=== PATIENT | female | born 1970 | race Caucasian/White ===

== ENCOUNTER 2018-03-25 08:00 | Outpatient (CLI) | payer BC ==
[2015-05-30 06:23] VITALS: BMI 27.5
== END 2018-03-25 09:00 | disposition home or self-care (01) ==
LOC: D.MAMMO 08:00
DX: Z12.31 Encounter for screening mammogram for malignant neoplasm of breast (principal)

== ENCOUNTER 2020-06-19 15:30 | Outpatient (CLI) | payer OTHER ==
[2015-05-30 06:23] VITALS: BMI 27.5
== END 2020-06-19 23:59 | disposition home or self-care (01) ==
LOC: D.MAMMO 15:30
PROVIDERS: ATTEND Family Medicine
DX: Z12.31 Encounter for screening mammogram for malignant neoplasm of breast (principal)